=== PATIENT | female | born 1985 | race Caucasian/White ===

== ENCOUNTER 2017-02-25 18:57 | Emergency (ER) | payer BC | END 2017-02-25 19:40 | disposition home or self-care (01) | LOC: ER 18:57 | DX: I80.01 Phlebitis and thrombophlebitis of superficial vessels of right lower extremity (principal); F32.9 Major depressive disorder, single episode, unspecified; F17.210 Nicotine dependence, cigarettes, uncomplicated; Z98.51 Tubal ligation status ==